=== PATIENT | male | born 1935 | race Caucasian/White ===

== ENCOUNTER 2017-08-30 16:36 | Inpatient (IN) ==
[2017-08-30] MEDS ORDERED: 0.9 % SODIUM CHLORIDE 1,000 ML IV ONE (16:49)
--- NOTE | 2017-08-30 16:59 | Emergency Department Note ---
Altered Mental Status HPI - General Chief Complaint: Altered Mental Status Stated Complaint: decreased LOC Time Seen by Provider: 08/30/17 16:47 Source: family, EMS Mode of arrival: EMS Limitations: altered mental status - History of Present Illness HPI Narrative: 82-year-old male who was seen 1 month ago on 08/02/17 for similar complaints which patient has been having altered level consciousness having hallucinations and agitation periods. Patient is being cared for at [facility] rehab which apparently patient had a CABG procedure and postoperatively developed a CVA. [facility] and then transferred to [facility] rehab the care center and that possibly may have an aspiration she still continued to be agitated. counter server arrived his blood sugar was 27 they did give him D50 CT performed 1 month ago revealed devious infarcts and possibly new pneumonia or acute infarct.. Had some mild cough the past week - Related Data Home Medications Medication Instructions Recorded Confirmed acetaminophen 500 mg tablet 650 mg G-TUBE Q4HP PRN tab 02/24/15 08/30/17 aspirin 81 mg chewable tablet 162 mg G-TUBE DAILY tab 02/24/15 08/30/17 Amantadine HCl [Amantadine] 100 mg G-TUBE BID 08/02/17 08/30/17 Amiodarone HCl [Cordarone] 200 mg G-TUBE QAC 08/02/17 08/30/17 Ascorbate Calcium [Vitamin C] 500 mg G-TUBE TUTHSA 08/02/17 08/30/17 Bisacodyl [Dulcolax] 10 mg [place] DAILYP PRN 08/02/17 08/30/17 Ferrous Sulfate [Iron] 325 mg G-TUBE TUTHSA 08/02/17 08/30/17 Insulin Aspart [Novolog] 0 unit SQ ACHS 08/02/17 08/30/17 Pantoprazole [Protonix] 40 mg G-TUBE DAILY 08/02/17 08/30/17 Terazosin [Hytrin] 1 mg G-TUBE HS 08/02/17 08/30/17 Vitamin D3 5,000 unit G-TUBE DAILY 08/02/17 08/30/17 acetaZOLAMIDE [Acetazolamide] 250 mg G-TUBE BID 08/02/17 08/30/17 traMADol HCL [Ultram] 50 mg G-TUBE Q6HP PRN 08/02/17 08/30/17 Clotrimazole/Betamethasone Dip 45 gm TOPICAL BID 08/30/17 08/30/17 [Clotrimazole-Betamethasone Crm] Glucagon HCl 1 mg IJ PRN PRN 08/30/17 08/30/17 Insulin Degludec [Tresiba 40 unit SQ DAILY 08/30/17 08/31/17 Flextouch U-200] Ipratropium/Albuterol [Duoneb] 3 ml NEB Q4HP PRN 08/30/17 08/30/17 LORazepam [Ativan] 0.25 mg PO Q6HP PRN 08/30/17 08/30/17 Magnesium Hydroxide [Milk of 400 mg PO PRN PRN 08/30/17 08/30/17 Magnesia] Allergies Allergy/AdvReac Type Severity Reaction Status Date / Time Iodinated Contrast- Oral and Allergy Intermediate Hives Verified 03/18/15 10:04 IV Dye [Iodinated Contrast Media - IV Dye] Penicillins Allergy Unknown Unknown Verified 08/30/17 21:51 Zvlxsve-Dcn-Lwa Reductase Allergy Unknown Verified 08/30/17 16:45 Inhibitor Sulfa (Sulfonamide Allergy Unknown Verified 08/30/17 16:45 Antibiotics) Review of Systems All systems ED: reviewed and negative except as stated. Constitutional: Denies: fever, chills Eyes: Denies: eye pain ENT ED: Denies: ear pain Cardiovascular: Denies: chest pain Respiratory: Denies: shortness of breath Gastrointestinal: Denies: abdominal pain Genitourinary: Denies: dysuria Musculoskeletal: Denies: back pain Integumentary: Denies: rash Neurological: Reports: as per HPI, confusion (he has been having confusion over the last month with agitation). Denies: numbness, paresthesias Psychiatric: Denies: anxiety Endocrine: Denies: fatigue Hematological/Lymphatic: Denies: easy bleeding Allergic/Immunologic: Denies: facial swelling Past Medical History - Past Medical History Medical history: Reports: arthritis (osteo-), cancer (prostate - external beam radiotherapy), coronary artery disease, DM, GERD, hyperlipidemia, hypertension, myocardial infarction (non-STEMI 2000, 2010 (?)), obesity, other (Carotid atherosclerosis. Tubular adenoma(s) colon. BPH. Chronic prostatitis. Pancreatitis (1969's-'s). Periph vasc disease. Mitral regurg. Metabolic syndrome. Gout. Chronic low back pain. Anemia. Reactive airway disease. C difficile colitis (presumptive based on PEG vanco).) Psychiatric history: Reports: anxiety, depression Surgical history ED: Reports: angioplasty/stent, appendectomy, carotid endarterectomy (right), coronary bypass (CABG), tonsillectomy, other (dilation or urethral stricture / cystoscopy. Debridement of leg wound.) - Social History smoking status: Former smoker (Quit at age 27) Alcohol use: Reports: Rarely (1 beer in 6 months.) Drug use: Reports: none Physical Exam Limitations: altered mental status Head: atraumatic, normocephalic Eye: Present: normal appearance ENT: normal exam, normal oropharynx, mucous membranes moist Neck: Present: normal inspection, full ROM, trachea midline Chest: Present: normal inspection, symmetric chest wall rise Respiratory: Present: normal lung sounds bilaterally, respiratory distress Cardiovascular: Present: regular rate, normal rhythm. Absent: bradycardia, tachycardia Abdominal: Present: soft, normal bowel sounds. Absent: distention, tenderness, guarding, rebound, rigidity Extremities: Present: normal inspection, full ROM Back: Present: normal inspection, full ROM Patient oriented to: Absent: person, place, time Speech: Absent: fluid speech Cranial nerves: EOM function (II, III, IV, ): Normal, facial sensation (V): Normal, facial palsy (VII): Normal, gag reflex (IX): Normal, spinal accessory function (XI): Normal, tongue deviation (XII): Normal Motor strength - LUE: 4/5 Motor strength - RUE: 4/5 Motor strength - LLE: 4/5 Motor strength - RLE: 4/5 Upper motor neuron exam: Babinski sign: Absent bilaterally Sensory exam upper extremity: Normal: light touch Sensory exam lower extremity: Normal: light touch DTR: 2+: patellar (L), patellar (R) Coma Scale Motor Response: Obeys Commands Coma Scale Verbal Response: Oriented Psychiatric: Present: normal affect Course Vital Signs Temperature 96.5 F L 08/30/17 16:40 Pulse Rate 85 08/30/17 16:40 Respiratory Rate 18 08/30/17 16:40 Blood Pressure 135/72 08/30/17 16:40 Pulse Oximetry (%) 94 08/30/17 16:40 Temperature 97.3 F 08/31/17 08:00 Pulse Rate 107 H 08/31/17 07:38 Respiratory Rate 20 08/31/17 08:00 Blood Pressure 120/72 08/31/17 08:00 Pulse Oximetry (%) 96 08/31/17 08:00 Altered Mental Status - Lab Data Result diagrams: 08/31/17 04:17 08/31/17 04:17 Lab Results 08/30/17 08/30/17 08/30/17 Range/Units 17:05 17:05 17:05 WBC 12.2 H (4.5-11.0) K/mcL RBC 3.83 L (4.50-5.90) M/mcL Hgb 11.5 L (13.5-16.5) g/dL Hct 34.4 L (41.0-55.0) % POC Hct 35.0 L (41.0-55.0) % MCV 89.7 (80.0-100.0) fL MCH 29.9 (26.0-34.0) pg MCHC 33.3 (31.0-36.0) g/dL RDW 16.5 H (11.5-14.5) % Plt Count 447 H (140-440) K/mcL MPV 7.8 (7.4-10.4) fL Total Counted 100 Seg Neutrophils % 86 H (38-78) % Band Neutrophils % 3 (0-10) % Lymphocytes % 6 L (15-49) % Monocytes % (Manual) 4 (1-12) % Eosinophils % (Manual) 1 (0-7) % Platelet Estimate Increased A (NORMAL) RBC Morphology Abnorm A (NORMAL) Polychromasia Few A (NONE SEEN) Anisocytosis 1+ A (NONE SEEN) VBG Lactic Acid 1.1 (0.5-2.2) mmol/L POC Sodium 145 (133-145) mmol/L Sodium 143 (133-145) mmol/L POC Potassium 3.5 (3.3-5.1) mmol/L Potassium 3.7 (3.3-5.1) mmol/L POC Chloride 113 H (96-108) mmol/L Chloride 108 (96-108) mmol/L Carbon Dioxide 18 L (22-30) mmol/L POC Total CO2 19 L (22-30) mmol/L Anion Gap 17.0 H (8-16) POC BUN 55 H (8-23) mg/dl BUN 63 H (8-23) mg/dl Creatinine 1.7 H (0.7-1.2) mg/dl POC Creatinine 1.6 H (0.7-1.2) mg/dl GFR Calculation 37 Glucose 94 (70-105) mg/dL POC Glucose 95 (70-105) mg/dL Calcium 10.0 (8.6-10.4) mg/dl POC WB Ioniz Calcium 1.33 H (1.16-1.32) mmol/L Total Bilirubin 0.5 (0.0-1.0) mg/dL AST 27 (0-37) U/l ALT 99 H (0-40) U/l Alkaline Phosphatase 176 H (39-117) U/L Total Protein 7.2 (5.9-8.4) gm/dL Albumin 3.1 L (3.2-5.2) gm/dL Globulin 4.1 H (2.2-3.7) gm/dL Albumin/Globulin Ratio 0.8 L (1.0-2.3) Urine Color Urine Appearance Urine pH (5.0-9.0) Ur Specific [place] (1.000-1.035) Urine Protein (NEG) mg/dL Urine Glucose (UA) (NEG) mg/dL Urine Ketones (NEG) mg/dL Urine Occult Blood (<0.03) mg/dL Urine Nitrate (NEG) Urine Bilirubin (NEG) mg/dL Urine Urobilinogen (NEG) mg/dL Ur Leukocyte Esterase (NEG) /uL Urine RBC (0-1) /hpf Urine WBC (0-4) /hpf Ur Squamous Epith Cells (0-4) /hpf Urine Bacteria (0) /hpf Urine Mucus (0) /hpf Ur Culture Indicated? 08/30/17 Range/Units 18:03 WBC (4.5-11.0) K/mcL RBC (4.50-5.90) M/mcL Hgb (13.5-16.5) g/dL Hct (41.0-55.0) % POC Hct (41.0-55.0) % MCV (80.0-100.0) fL MCH (26.0-34.0) pg MCHC (31.0-36.0) g/dL RDW (11.5-14.5) % Plt Count (140-440) K/mcL MPV (7.4-10.4) fL Total Counted Seg Neutrophils % (38-78) % Band Neutrophils % (0-10) % Lymphocytes % (15-49) % Monocytes % (Manual) (1-12) % Eosinophils % (Manual) (0-7) % Platelet Estimate (NORMAL) RBC Morphology (NORMAL) Polychromasia (NONE SEEN) Anisocytosis (NONE SEEN) VBG Lactic Acid (0.5-2.2) mmol/L POC Sodium (133-145) mmol/L Sodium (133-145) mmol/L POC Potassium (3.3-5.1) mmol/L Potassium (3.3-5.1) mmol/L POC Chloride (96-108) mmol/L Chloride (96-108) mmol/L Carbon Dioxide (22-30) mmol/L POC Total CO2 (22-30) mmol/L Anion Gap (8-16) POC BUN (8-23) mg/dl BUN (8-23) mg/dl Creatinine (0.7-1.2) mg/dl POC Creatinine (0.7-1.2) mg/dl GFR Calculation Glucose (70-105) mg/dL POC Glucose (70-105) mg/dL Calcium (8.6-10.4) mg/dl POC WB Ioniz Calcium (1.16-1.32) mmol/L Total Bilirubin (0.0-1.0) mg/dL AST (0-37) U/l ALT (0-40) U/l Alkaline Phosphatase (39-117) U/L Total Protein (5.9-8.4) gm/dL Albumin (3.2-5.2) gm/dL Globulin (2.2-3.7) gm/dL Albumin/Globulin Ratio (1.0-2.3) Urine Color Yellow Urine Appearance Clear Urine pH 5.0 (5.0-9.0) Ur Specific [place] 1.019 (1.000-1.035) Urine Protein Neg (NEG) mg/dL Urine Glucose (UA) Negative (NEG) mg/dL Urine Ketones Neg (NEG) mg/dL Urine Occult Blood Neg (<0.03) mg/dL Urine Nitrate Neg (NEG) Urine Bilirubin Neg (NEG) mg/dL Urine Urobilinogen Neg (NEG) mg/dL Ur Leukocyte Esterase Neg (NEG) /uL Urine RBC 0 (0-1) /hpf Urine WBC 1 (0-4) /hpf Ur Squamous Epith Cells < 1 (0-4) /hpf Urine Bacteria 0 (0) /hpf Urine Mucus Few (0) /hpf Ur Culture Indicated? No Disposition Pt seen by [employer] LEADER/PA only: No Clinical Impression: Decreased LOC Disposition: Xfer As Inpt ([facility]) Condition: Undetermined
--- NOTE | 2017-08-30 17:33 | XRay Report ---
CLINICAL INFORMATION: Chest pain COMPARISON: 08/02/2017 FINDINGS: Moderate cardiomegaly shows slight increased. Mediastinum is unremarkable. Pulmonary vessels appear grossly normal but are poorly visualized. Large infiltrate throughout the right lung has developed. The left lung is clear IMPRESSION: Large diffuse right lung infiltrate. Suspect pneumonia. Interpreted and Authenticated by: Surendra Mcginnis 08/30/17
[2017-08-30] MEDS ORDERED: cefTRIAXone 1 GM VIAL IV SCH (17:45)
[2017-08-30] MEDS ORDERED: 0.9 % SODIUM CHLORIDE 1,000 ML IV SCH (17:45)
[2017-08-30 17:49] LABS: Mean Cell Volume 89.7 fL (80.0-100.0); Mean Corpuscular HGB Conc 33.3 g/dL (31.0-36.0); Mean Corpuscular Hemoglobin 29.9 pg (26.0-34.0); Platelet Count 447 K/mcL (140-440); RBC 3.83 M/mcL (4.50-5.90); Red Cell Distribution Width 16.5 % (11.5-14.5)
[2017-08-30 18:13] LABS: ALT/SGPT 99 U/l (0-40); Albumin 3.1 gm/dL (3.2-5.2); Albumin/Globulin Ratio 0.8 (1.0-2.3); Alkaline Phosphatase 176 U/L (39-117); Blood Urea Nitrogen 63 mg/dl (8-23)
[2017-08-30] MEDS ORDERED: DEXTROSE 5%-1/2NS 1,000 ML IV SCH (18:15)
[2017-08-30 18:21] LABS: Anisocytosis 1+ (NONE SEEN); Band Neutrophils % 3 % (0-10); Eosinophils % (Manual) 1 % (0-7); Lymphocytes % 6 % (15-49); Monocytes % (Manual) 4 % (1-12); Platelet Estimate INCREASED (NORMAL); RBC Morphology ABNORM (NORMAL); Segmented Neutrophils % 86 % (38-78)
--- NOTE | 2017-08-30 18:21 | Cat Scan Report ---
CLINICAL INFORMATION: Confusion history of CVA COMPARISON: Head CT one month prior - 08/02/2017 TECHNIQUE: 2.5 mm helical slices were obtained in the skull base to vertex. Following reconstruction, axial reformatted images were reviewed at bone and parenchymal windows. The exam was performed using radiation dose optimization techniques including, but not limited to, automated exposure control, adjustment of the mA and/or kV according to patient size and use of iterative reconstruction technique. FINDINGS: The ventricles, sulci, fissures, and cisterns are symmetrically enlarged compatible with mild age-related atrophy - no extra-axial fluid collections or masses are appreciated. Moderate size wedge-shaped chronic infarct in the inferior left occipital lobe and moderate wedge-shaped chronic infarct in the superior left occipital lobe shows a decrease in attenuation with stroke evolution. Patchy chronic ischemic changes in the cerebral white matter - expected for age. There is no intracerebral hemorrhage, mass effect or edema. There is an air-fluid level in the left sphenoid sinus compatible with severe sphenoid sinusitis. No osseous abnormality.\ IMPRESSION: Moderate chronic cortical-based infarct in the inferior left occipital lobe and a second second moderate chronic cortical-based infarct in the superior left occipital lobe - near vertex Mild atrophy and chronic ischemic changes in the cerebral white matter. No hemorrhage or other acute intracerebral process Severe left sphenoid sinusitis - stable Interpreted and Authenticated by: Surendra Mcginnis 08/30/17
[2017-08-30 18:34] LABS: Appearance,Urine CLEAR; Bacteria,Urine 0 /hpf (0); Bilirubin,Urine NEG (NEG); Color,Urine YELLOW; Glucose,Urine (UA) NEGATIVE (NEG); Leukocyte Esterase,Urine NEG /uL (NEG); Mucus,Urine FEW /hpf (0); Protein,Urine NEG (NEG); Specific Gravity,Urine 1.019 (1.000-1.035); Urine Blood NEG mg/dL (<0.03); Urine RBC 0 /hpf (0-1); Urine Squamous Epithelial Cell < 1 /hpf (0-4); Urine WBC 1 /hpf (0-4); Urobilinogen,Urine NEG (NEG)
[2017-08-30] MEDS ORDERED: IPRATROPIUM/ALBUTEROL 3 ML AMPUL.NEB NEB ONE (19:21)
[2017-08-30] MEDS ORDERED: BISACODYL 10 MG SUPP.RECT PR PRN ×2 (20:59→21:34)
[2017-08-30] MEDS ORDERED: cefTRIAXone 2 GM in DEXTROSE 5% IN WATER 50 ML IV SCH (21:34)
[2017-08-30] MEDS ORDERED: ACETAMINOPHEN 325 MG TABLET PO PRN (21:34)
[2017-08-30] MEDS ORDERED: LORazepam 0.5 MG TABLET PO PRN (21:52)
[2017-08-30] MEDS: HEPARIN 5,000 UNIT/ML VIAL SQ SCH (22:23)
[2017-08-30] MEDS: metroNIDAZOLE 500 MG/100 ML BAG IV SCH (22:24)
--- NOTE | 2017-08-30 22:47 | Internal Med History&Physical ---
Medical - H&P: HPI Patient information: Note initiated : 08/30/17 at 10:31 pm Service Date, if different from initiated Date: [] Patient: Bill Snider a 82 y/o M admitted on 08/30/17 for decreased LOC. Chief Complaint: cough and sob History of present illness: Mr. Snider is a 82 year old M, resident of [facility] facility, who was referred to ED for AMS with episodes of agitation and hallucinations. is at beside and reported that patient has been coughing for one month. A CXR at that time was 'normal'. The cough is usually non-productive and doesn't seem to be related to oral intake of food or liquids. Patient is S/P CABG x 4 on 05/26/2017. He did initially well, but developed respiratory failure after a few days. stated that patient was about one month on ventilator support. He was noted to have right sided weakness and diagnosed with a CVA, which most likely occurred in immediate post-operative period. Patient was for one month in an acute rehab center before transferred to [facility]. Patient has a G-tube, but states, that he has been eating pureed food and non-thickened liquids without problems. The tube hasn't been used since patient has been in [facility]. Patient is still considerably weak on the right side. He stands three times daily with PT, but hasn't been able to ambulate. When EMS arrived to pick-up patient, BS was 27 and patient was given one amp of D50. - Constitutional Constitutional: Present: fatigue, malaise, weakness - Cardiovascular Cardiovascular: Present: dyspnea, edema, leg edema - Respiratory Respiratory: Present: cough, dyspnea, chest congestion, excessive phlegm production - Gastrointestinal Gastrointestinal: Absent: abdominal pain, diarrhea, dysphagia - Genitourinary Genitourinary: Absent: dysuria - Musculoskeletal Musculoskeletal: Present: muscle weakness - Psychiatric Psychiatric: Present: depression Medical - H&P: [facility] Medical history: Medical history: Reports: arthritis (osteo-), cancer (prostate - external beam radiotherapy), coronary artery disease, DM, GERD, hyperlipidemia, hypertension, myocardial infarction (non-STEMI 2000, 2010 (?)), obesity, other (Carotid atherosclerosis. Tubular adenoma(s) colon. BPH. Chronic prostatitis. Pancreatitis (1969's-'s). Periph vasc disease. Mitral regurg. Metabolic syndrome. Gout. Chronic low back pain. Anemia. Reactive airway disease. C difficile colitis Surgical history: Surgical history ED: Reports: angioplasty/stent, appendectomy, carotid endarterectomy (right), coronary bypass (CABG), tonsillectomy, other (dilation or urethral stricture / cystoscopy. Debridement of leg wound.)S/P PEG placement Smoking status: Former smoker (quit smoking at age 27) Drug use: none Alcohol use: none Medical - H&P: Meds Home Medications Medication Instructions Recorded Confirmed Type acetaminophen 500 mg tablet 650 mg G-TUBE Q4HP PRN tab 02/24/15 08/30/17 History aspirin 81 mg chewable tablet 162 mg G-TUBE DAILY tab 02/24/15 08/30/17 History Amantadine HCl [Amantadine] 100 mg G-TUBE BID 08/02/17 08/30/17 History Amiodarone HCl [Cordarone] 200 mg G-TUBE QAC 08/02/17 08/30/17 History Ascorbate Calcium [Vitamin C] 500 mg G-TUBE TUTHSA 08/02/17 08/30/17 History Bisacodyl [Dulcolax] 10 mg [place] DAILYP PRN 08/02/17 08/30/17 History Ferrous Sulfate [Iron] 325 mg G-TUBE TUTHSA 08/02/17 08/30/17 History Insulin Aspart [Novolog] 0 unit SQ ACHS 08/02/17 08/30/17 History Pantoprazole [Protonix] 40 mg G-TUBE DAILY 08/02/17 08/30/17 History Terazosin [Hytrin] 1 mg G-TUBE HS 08/02/17 08/30/17 History Vitamin D3 5,000 unit G-TUBE DAILY 08/02/17 08/30/17 History acetaZOLAMIDE [Acetazolamide] 250 mg G-TUBE BID 08/02/17 08/30/17 History traMADol HCL [Ultram] 50 mg G-TUBE Q6HP PRN 08/02/17 08/30/17 History Clotrimazole/Betamethasone Dip 45 gm TOPICAL BID 08/30/17 08/30/17 History [Clotrimazole-Betamethasone Crm] Glucagon HCl 1 mg IJ PRN PRN 08/30/17 08/30/17 History Insulin Degludec [Tresiba 200 unit SQ DAILY 08/30/17 08/30/17 History Flextouch U-200] Ipratropium/Albuterol [Duoneb] 3 ml NEB Q4HP PRN 08/30/17 08/30/17 History LORazepam [Ativan] 0.25 mg PO Q6HP PRN 08/30/17 08/30/17 History Magnesium Hydroxide [Milk of 400 mg PO PRN PRN 08/30/17 08/30/17 History Magnesia] Allergies Allergy/AdvReac Type Severity Reaction Status Date / Time Iodinated Contrast- Oral and Allergy Intermediate Hives Verified 03/18/15 10:04 IV Dye [Iodinated Contrast Media - IV Dye] Penicillins Allergy Unknown Unknown Verified 08/30/17 21:51 [id number]-[id number]-Vzq Reductase Allergy Unknown Verified 08/30/17 16:45 Inhibitor Sulfa (Sulfonamide Allergy Unknown Verified 08/30/17 16:45 Antibiotics) Medical - H&P: Exam - Constitutional Vitals: Temp Pulse Resp BP Pulse Ox 96.9 F L 78 28 H 133/73 93 08/30/17 21:00 08/30/17 21:00 08/30/17 21:00 08/30/17 21:00 08/30/17 21:00 General appearance: average body habitus - Head Head exam: Present: normal inspection - Eye Eye exam: Present: EOMI, PERRL - Neck Neck exam: Present: normal inspection - Respiratory Respiratory exam: Present: rhonchi, wheezes. Absent: accessory muscle use - Cardiovascular Cardiovascular exam: Present: normal rate and rhythm - GI/Abdominal GI/Abdominal exam: Present: normal bowel sounds, soft Additional comments: PEG-tube in place. Site is wnl - Extremities Exam Extremities exam: Present: pedal edema - Neurological Exam Additional comments: awake. Oriented x 1 - Expanded Neurological Exam Neuro motor strength exam: LUE: 5, RUE: 4, LLE: 5, RLE: 3 - Psychiatric Psychiatric exam: Present: depressed - Skin Skin exam: Present: intact Medical - H&P: Reslt - Labs CBC & Chem 7: 08/30/17 17:05 08/30/17 17:05 Labs: Short CBC 08/30/17 Range/Units 17:05 WBC 12.2 H (4.5-11.0) K/mcL Hgb 11.5 L (13.5-16.5) g/dL Hct 34.4 L (41.0-55.0) % Plt Count 447 H (140-440) K/mcL BMP 08/30/17 17:05 Sodium 143 Potassium 3.7 Chloride 108 Carbon Dioxide 18 L BUN 63 H Creatinine 1.7 H Glucose 94 Calcium 10.0 Liver Function 08/30/17 Range/Units 17:05 Total Bilirubin 0.5 (0.0-1.0) mg/dL AST 27 (0-37) U/l ALT 99 H (0-40) U/l Alkaline Phosphatase 176 H (39-117) U/L Albumin 3.1 L (3.2-5.2) gm/dL Urine 08/30/17 Range/Units 18:03 Urine Color Yellow Urine Appearance Clear Urine pH 5.0 (5.0-9.0) Ur Specific [place] 1.019 (1.000-1.035) Urine Protein Neg (NEG) mg/dL Urine Glucose (UA) Negative (NEG) mg/dL - Impressions CT-head: IMPRESSION: Moderate chronic cortical-based infarct in the inferior left occipital lobe and a second second moderate chronic cortical-based infarct in the superior left occipital lobe - near vertex Mild atrophy and chronic ischemic changes in the cerebral white matter. No hemorrhage or other acute intracerebral process Severe left sphenoid sinusitis - stable CXR: IMPRESSION: Large diffuse right lung infiltrate. Suspect pneumonia. Medical - H&P: A/P - Narrative A/P Narrative: 82-year-old male presented 08/30 with following problems: + AMS Underlying dementia Metabolic encephalopathy due to pneumonia, hypoglycemia + Large R-sided pneumonia Aspiration vs HCAP Empirically started on Ceftriaxone and Metronidazole MRSA screen and Blood cultures obtained + Recent CVA with residual R-sided weakness. Possibly dysphagia. Will obtain swallowing eval + S/P CABG in May 2017 + Diabetes Mellitus Was hypoglycemic earlier today. Will monitor closely Insulin SS + Dementia DVT prophylaxis: heparin Code status: DNR as discussed with patient and at bedside Time spent > 50 min on [id number] encounter, counseling, coordination of care.
[2017-08-30] MEDS: IPRATROPIUM/ALBUTEROL 3 ML AMPUL.NEB NEB SCH (23:16)
[2017-08-30] MEDS ORDERED: DEXTROSE 31 GM ORAL.SUSP PO PRN (23:29)
[2017-08-30] MEDS ORDERED: LORazepam 2 MG/ML VIAL IV ONE (23:38)
[2017-08-30] MEDS ORDERED: LORazepam 2 MG/ML VIAL ONE (23:41)
[2017-08-30] MEDS: 0.9 % SODIUM CHLORIDE 10 ML SYRINGE IV SCH (23:51)
[2017-08-31] MEDS ORDERED: LORazepam 2 MG/ML VIAL IV PRN (00:20)
[2017-08-31] MEDS ORDERED: LORazepam 2 MG/ML VIAL ONE (04:16)
[2017-08-31] MEDS: LORazepam 2 MG/ML VIAL IV PRN ×5 (04:19→21:08)
[2017-08-31] MEDS: metroNIDAZOLE 500 MG/100 ML BAG IV SCH ×3 (05:30→21:24)
[2017-08-31] MEDS: 0.9 % SODIUM CHLORIDE 10 ML SYRINGE IV SCH ×3 (05:31→21:20)
[2017-08-31 06:04] LABS: Basophils # (Auto) 0 K/mcL (0.0-0.3); Basophils % (Auto) 0 % (0.0-2.0); Eosinophils # (Auto) 0.5 K/mcL (0.0-0.7); Eosinophils % (Auto) 3.4 % (0.0-7.0); Granulocytes % (Auto) 80.9 % (38.0-78.0); Lymphocytes # (Auto) 1.7 K/mcL (1.5-4.8); Lymphocytes % (Auto) 10.6 % (15.5-49.0); Mean Cell Volume 91.7 fL (80.0-100.0); Mean Corpuscular HGB Conc 32.3 g/dL (31.0-36.0); Mean Corpuscular Hemoglobin 29.6 pg (26.0-34.0); Monocytes # (Auto) 0.8 K/mcL (0.1-0.9); Monocytes % (Auto) 5.1 % (1.0-12.0); Platelet Count 466 K/mcL (140-440); Red Cell Distribution Width 16.6 % (11.5-14.5)
[2017-08-31 06:18] LABS: Hemoglobin A1C 6.9 % HGB (4.0-6.0)
[2017-08-31 06:43] LABS: Blood Urea Nitrogen 62 mg/dl (8-23)
[2017-08-31] MEDS: IPRATROPIUM/ALBUTEROL 3 ML AMPUL.NEB NEB SCH ×3 (07:27→19:25)
[2017-08-31] MEDS ORDERED: AMIODARONE HCL 200 MG TABLET PO SCH ×2 (08:00)
[2017-08-31] MEDS: INSULIN LISPRO 1 UNIT/0.01 ML UNIT SQ SCH ×4 (08:05→21:08)
[2017-08-31] MEDS ORDERED: CITALOPRAM 20 MG TABLET PO SCH (09:00)
[2017-08-31] MEDS ORDERED: LEVOFLOXACIN 750 MG/150 ML BAG IV SCH (09:00)
[2017-08-31] MEDS ORDERED: cefTRIAXone 1 GM VIAL IV SCH (09:00)
[2017-08-31] MEDS ORDERED: AMANTADINE HCL 100 MG CAPSULE PO SCH (09:00)
[2017-08-31] MEDS: AMANTADINE HCL 100 MG CAPSULE PO SCH ×2 (09:29→21:19)
[2017-08-31] MEDS: HEPARIN 5,000 UNIT/ML VIAL SQ SCH ×2 (09:43→21:18)
[2017-08-31] MEDS: DEXTROSE 50% 50 ML VIAL IV PRN ×2 (11:50→22:21)
--- NOTE | 2017-08-31 13:55 | Internal Med Progress Note ---
Medical - PN: Subj Patient information: Note initiated : 08/31/17 at 1:52 pm Service Date, if different from initiated Date: [] Patient: Bill Snider 82 y/o M admitted on 08/30/17 for Decreased LOC/ Pneumonia. Chief Complaint: AMS with agitation, SOB and cough. Interval history: 08/30: Admitted with large RLL pneumonia. DD aspiration, HCAP Was agitated throughout night. In mild respiratory distress with wheezing and rhonchi. Has been receiving Ativan and Morphine intermittently with slight improvement in agitation. 08/31: SBP 94 Requiring 4 L O2 via NC Continues to be delirious and agitated. WBC up to 15.9. MRSA: neg On: Ceftriaxone, Azithromycin, Levofloxacin, Metronidazole. Levofloxacin added Review of [place] medical information (h/P and D/c summary) - Constitutional Vitals: Vital Signs Temp Pulse Resp BP Pulse Ox 97.9 F 107 H 22 94/54 95 08/31/17 12:00 08/31/17 07:38 08/31/17 12:00 08/31/17 12:00 08/31/17 12:00 Period Temp Pulse Resp BP Sys/Jane Pulse Ox Last 24 Hr 95.6 F-97.9 F 78-107 17-28 93-140/54-84 87-100 Intake and Output 08/30/17 08/31/17 08/31/17 21:59 05:59 13:59 Intake Total 2150 / 2150 100 / 100 370 / 370 Output Total 575 / 575 150 / 150 Balance 2150 / 2150 -475 / -475 220 / 220 Weight 192 lb Intake & Output: Intake & Output 08/30/17 08/31/17 08/31/17 21:59 05:59 13:59 Intake Total 2150 / 2150 100 / 100 370 / 370 Output Total 575 / 575 150 / 150 Balance 2150 / 2150 -475 / -475 220 / 220 Weight 192 lb Intake: IV 2150 / 2150 100 / 100 250 / 250 Sodium Chloride 0.9% 1,000 ml @ 1446 / 1446 250 mls/hr IV .Q4H MED Rx#: [id number] Dextrose 5%-1/2Ns IV Solution 1 704 / 704 ,000 ml @ 250 mls/hr IV .Q4H MED Rx#:[id number] Oral 0 / 0 120 / 120 Output: Urine Catheter Amount 575 / 575 150 / 150 Other: Meal Breakfast Percent of Meal Consumed 30% Feeding Ability Total Assistance General appearance: average body habitus, mild distress - Respiratory Respiratory exam: Present: rhonchi, wheezes - Cardiovascular Cardiovascular exam: Present: normal rate and rhythm - GI/Abdominal GI/Abdominal exam: Present: normal bowel sounds, soft Additional comments: PEG-tube in place - Extremities Exam Extremities exam: Present: pedal edema Medical - PN: Obj Da - Labs CBC & Chem 7: 08/31/17 04:17 08/31/17 04:17 Labs: Abnormal Lab Results 08/31/17 08/31/17 08/31/17 04:17 04:17 04:17 WBC 15.9 H RBC 3.80 L Hgb 11.3 L Hct 34.9 L POC Hct RDW 16.6 H Plt Count 466 H Gran % 80.9 H Lymph % (Auto) 10.6 L Gran # 12.9 H Seg Neutrophils % Lymphocytes % Platelet Estimate RBC Morphology Polychromasia Anisocytosis POC Chloride Chloride 109 H Carbon Dioxide 17 L POC Total CO2 Anion Gap POC BUN BUN 62 H Creatinine 1.6 H POC Creatinine Hemoglobin A1c 6.9 H POC WB Ioniz Calcium ALT Alkaline Phosphatase Albumin Globulin Albumin/Globulin Ratio 08/30/17 08/30/17 17:05 17:05 WBC 12.2 H RBC 3.83 L Hgb 11.5 L Hct 34.4 L POC Hct 35.0 L RDW 16.5 H Plt Count 447 H Gran % Lymph % (Auto) Gran # Seg Neutrophils % 86 H Lymphocytes % 6 L Platelet Estimate Increased A RBC Morphology Abnorm A Polychromasia Few A Anisocytosis 1+ A POC Chloride 113 H Chloride Carbon Dioxide 18 L POC Total CO2 19 L Anion Gap 17.0 H POC BUN 55 H BUN 63 H Creatinine 1.7 H POC Creatinine 1.6 H Hemoglobin A1c POC WB Ioniz Calcium 1.33 H ALT 99 H Alkaline Phosphatase 176 H Albumin 3.1 L Globulin 4.1 H Albumin/Globulin Ratio 0.8 L Meds: Medications Acetaminophen (Tylenol) 650 mg PO Q6HP PRN PRN Reason: PAIN/FEVER > 101 Albuterol/Ipratropium (Duoneb) 3 ml NEB Q6HRT [facility] Last Admin: 08/31/17 07:27 Dose: 3 ml Amantadine HCl (Amantadine) 100 mg PO BID [facility] Last Admin: 08/31/17 09:29 Dose: 100 mg Amiodarone HCl (Cordarone) 200 mg PO [facility] Last Admin: 08/31/17 08:40 Dose: 200 mg Bisacodyl (Dulcolax) 10 mg [place] DAILYP PRN PRN Reason: Constipation Ceftriaxone Sodium (Rocephin) 1 gm IV Q24H [facility] Last Admin: 08/31/17 09:44 Dose: 1 gm Citalopram Hydrobromide (Celexa) 10 mg PO DAILY [facility] Last Admin: 08/31/17 08:40 Dose: 10 mg Dextrose (Dextrose 50%) 0 ml IV UD PRN PRN Reason: Hypoglycemia Diagnostic Test (Pha) (Accu-Chek) 1 each FS ACHS [facility] Last Admin: 08/31/17 13:35 Dose: 1 each Glucose (Insta-Glucose) 15 gm PO PRN PRN PRN Reason: Hypoglycemia Heparin Sodium (Porcine) (Heparin) 5,000 unit SQ Q12 [facility] Last Admin: 08/31/17 09:43 Dose: 5,000 unit Metronidazole (Flagyl) 500 mg in 100 mls @ 100 mls/hr IV Q8H [facility] Last Admin: 08/31/17 13:52 Dose: 100 mls/hr Levofloxacin (Levaquin) 750 mg in 150 mls @ 100 mls/hr IV Q48H [facility] Last Infusion: 08/31/17 11:33 Dose: Infused Insulin Human Lispro (Humalog) 0 unit SQ [facility] PRN Reason: Protocol Last Admin: 08/31/17 11:50 Dose: Not Given Lorazepam (Ativan) 0.5 mg IV Q4HP PRN PRN Reason: ANXIETY/SEDATION Last Admin: 08/31/17 13:15 Dose: 0.5 mg Morphine Sulfate (Morphine) 1 mg IV Q4HP PRN PRN Reason: Dyspnea Last Admin: 08/31/17 11:51 Dose: 1 mg Sodium Chloride (Saline Flush) 10 ml IV Q8 [facility] Last Admin: 08/31/17 13:52 Dose: 10 ml Medical - PN: A/P - Time Spent With Patient Total time spent is greater than 50% in coordination of care (as documented) at patient's floor/unit and/or counseling patient: 15 - 24 minutes - Narrative A/P Narrative: 82-year-old male presented 08/30 with following problems: + AMS Underlying dementia Delirium Sundowning. Metabolic encephalopathy due to pneumonia, hypoglycemia Review of d/c summary [place] 06/19/17: was on Olanzaping 10 mg every 6 hours for agitation + Large R-sided pneumonia Aspiration vs HCAP Empirically started on Ceftriaxone and Metronidazole. Levofloxacin added. 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 Will monitor closely Insulin SS + CKD stage III Cr around 1.4 in June 2017 + Dementia DVT prophylaxis: heparin Code status: DNR Medical - PN: Qual - VTE Deep Vein Thrombosis/Pulmonary Embolism Present on Admission: No
[2017-08-31] MEDS ORDERED: HYDROmorphone 2 MG/ML VIAL ONE (23:37)
[2017-08-31] MEDS ORDERED: HYDROmorphone 2 MG/ML VIAL IV PRN (23:40)
--- NOTE | 2017-08-31 23:57 | Internal Med Progress Note ---
Medical - PN: Subj Patient information: Note initiated : 08/31/17 at 11:48 pm Service Date, if different from initiated Date: [] Patient: Bill Snider 82 y/o M admitted on 08/30/17 for Decreased LOC/ Pneumonia. Chief Complaint: [] Interval history: 08/30: Admitted with large RLL pneumonia. DD aspiration, HCAP Was agitated throughout night. In mild respiratory distress with wheezing and rhonchi. Has been receiving Ativan and Morphine intermittently with slight improvement in agitation. 08/31: SBP 94 Requiring 4 L O2 via NC Continues to be delirious and agitated. WBC up to 15.9. MRSA: neg On: Ceftriaxone, Azithromycin, Levofloxacin, Metronidazole. Levofloxacin added Review of [place] medical information (h/P and D/c summary) 23:30 Patient is tachypneic and agitated. Unable to clear airways. Lungs: bilateral rhonchi CXR: extensive consolidation RLL and diffuse infiltrates makayla Called to update patient's condition: extensive pneumonia. Patient showing signs of fatigue, SOB and discomfort. Will provide more comfort with narcotics. Suction as needed. BiPap support if tolerated. Condition is serious, prognosis guarded. Left the decision to come in and call family up to . - Constitutional Vitals: Vital Signs Temp Pulse Resp BP Pulse Ox 98.0 F 108 H 28 H 126/68 90 08/31/17 20:35 08/31/17 20:35 08/31/17 20:35 08/31/17 20:35 08/31/17 20:35 Period Temp Pulse Resp BP Sys/Jane Pulse Ox Last 24 Hr 97.1 F-98.0 F 96-116 20-28 89-129/50-72 90-97 Intake and Output 08/31/17 08/31/17 09/01/17 13:59 21:59 05:59 Intake Total 370 / 370 140 / 140 Output Total 150 / 150 Balance 220 / 220 139 / 139 Weight 185 lb 8 oz Patient Weight 09/01/17 05:59 Weight 185 lb 8 oz Intake & Output: Intake & Output 08/31/17 08/31/17 09/01/17 13:59 21:59 05:59 Intake Total 370 / 370 140 / 140 Output Total 150 / 150 / Balance 220 / 220 139 / 139 Weight 185 lb 8 oz Intake: IV 250 / 250 100 / 100 Oral 120 / 120 40 / 40 Output: Urine Catheter Amount 150 / 150 # of times incontinent of urine Other: Meal Breakfast Percent of Meal Consumed 30% Feeding Ability Total Assistance Medical - PN: Obj Da - Labs CBC & Chem 7: 08/31/17 04:17 08/31/17 04:17 Labs: Abnormal Lab Results 08/31/17 08/31/17 08/31/17 04:17 04:17 04:17 WBC 15.9 H RBC 3.80 L Hgb 11.3 L Hct 34.9 L POC Hct RDW 16.6 H Plt Count 466 H Gran % 80.9 H Lymph % (Auto) 10.6 L Gran # 12.9 H Seg Neutrophils % Lymphocytes % Platelet Estimate RBC Morphology Polychromasia Anisocytosis POC Chloride Chloride 109 H Carbon Dioxide 17 L POC Total CO2 Anion Gap POC BUN BUN 62 H Creatinine 1.6 H POC Creatinine Hemoglobin A1c 6.9 H POC WB Ioniz Calcium ALT Alkaline Phosphatase Albumin Globulin Albumin/Globulin Ratio 08/30/17 08/30/17 17:05 17:05 WBC 12.2 H RBC 3.83 L Hgb 11.5 L Hct 34.4 L POC Hct 35.0 L RDW 16.5 H Plt Count 447 H Gran % Lymph % (Auto) Gran # Seg Neutrophils % 86 H Lymphocytes % 6 L Platelet Estimate Increased A RBC Morphology Abnorm A Polychromasia Few A Anisocytosis 1+ A POC Chloride 113 H Chloride Carbon Dioxide 18 L POC Total CO2 19 L Anion Gap 17.0 H POC BUN 55 H BUN 63 H Creatinine 1.7 H POC Creatinine 1.6 H Hemoglobin A1c POC WB Ioniz Calcium 1.33 H ALT 99 H Alkaline Phosphatase 176 H Albumin 3.1 L Globulin 4.1 H Albumin/Globulin Ratio 0.8 L Meds: Medications Acetaminophen (Tylenol) 650 mg PO Q6HP PRN PRN Reason: PAIN/FEVER > 101 Albuterol/Ipratropium (Duoneb) 3 ml NEB Q4HRT [facility] Amantadine HCl (Amantadine) 100 mg PO BID [facility] Last Admin: 08/31/17 21:19 Dose: Not Given [facility]) [facility] Last Admin: 08/31/17 08:40 Dose: 200 mg Bisacodyl (Dulcolax) 10 mg [place] DAILYP PRN PRN Reason: Constipation Ceftriaxone Sodium (Rocephin) 1 gm IV Q24H [facility] Last Admin: 08/31/17 09:44 Dose: 1 gm Citalopram Hydrobromide (Celexa) 10 mg PO DAILY [facility] Last Admin: 08/31/17 08:40 Dose: 10 mg Dextrose (Dextrose 50%) 0 ml IV UD PRN PRN Reason: Hypoglycemia Last Admin: 08/31/17 22:21 Dose: 25 ml Diagnostic Test (Pha) (Accu-Chek) 1 each FS ACHS [facility] Last Admin: 08/31/17 22:53 Dose: 1 each Glucose (Insta-Glucose) 15 gm PO PRN PRN PRN Reason: Hypoglycemia Heparin Sodium (Porcine) (Heparin) 5,000 unit SQ Q12 [facility] Last Admin: 08/31/17 21:18 Dose: 5,000 unit Hydromorphone HCl (Dilaudid) 0.5 - 1 mg IV Q2HP PRN PRN Reason: Dyspnea Metronidazole (Flagyl) 500 mg in 100 mls @ 100 mls/hr IV Q8H [facility] Last Admin: 08/31/17 21:24 Dose: 100 mls/hr Levofloxacin (Levaquin) 750 mg in 150 mls @ 100 mls/hr IV Q48H [facility] Last Infusion: 08/31/17 11:33 Dose: Infused Insulin Human Lispro (Humalog) 0 unit SQ ACHS [facility] PRN Reason: Protocol Last Admin: 08/31/17 21:08 Dose: Not Given Lorazepam (Ativan) 0.5 mg IV Q4HP PRN PRN Reason: ANXIETY/SEDATION Last Admin: 08/31/17 21:08 Dose: 0.5 mg Morphine Sulfate (Morphine) 1 mg IV Q4HP PRN PRN Reason: Dyspnea Last Admin: 08/31/17 22:04 Dose: 1 mg Sodium Chloride (Saline Flush) 10 ml IV Q8 [facility] Last Admin: 08/31/17 21:20 Dose: 10 ml Medical - PN: A/P - Time Spent With Patient Total time spent is greater than 50% in coordination of care (as documented) at patient's floor/unit and/or counseling patient: 25 - 35 minutes Medical - PN: Qual - VTE Deep Vein Thrombosis/Pulmonary Embolism Present on Admission: No
[2017-09-01] MEDS ORDERED: ACETAMINOPHEN 325 MG TABLET PO PRN (00:51)
[2017-09-01] MEDS ORDERED: DEXTROSE 31 GM ORAL.SUSP PO PRN (00:51)
[2017-09-01] MEDS ORDERED: BISACODYL 10 MG SUPP.RECT PR PRN (00:51)
[2017-09-01] MEDS: VANCOMYCIN 1,000 MG in 0.9 % SODIUM CHLORIDE 250 ML IV SCH ×2 (01:50→02:05)
[2017-09-01] MEDS ORDERED: IPRATROPIUM/ALBUTEROL 3 ML AMPUL.NEB NEB ONE (02:52)
[2017-09-01] MEDS ORDERED: IPRATROPIUM/ALBUTEROL 3 ML AMPUL.NEB NEB SCH (03:00)
[2017-09-01] MEDS: IPRATROPIUM/ALBUTEROL 3 ML AMPUL.NEB NEB SCH ×6 (03:05→23:30)
[2017-09-01] MEDS ORDERED: DEXTROSE 50% 50 ML VIAL IV ONE (04:25)
[2017-09-01] MEDS: DEXTROSE 50% 50 ML VIAL IV PRN ×2 (04:31→18:18)
[2017-09-01 05:15] LABS: Basophils # (Auto) 0 K/mcL (0.0-0.3); Basophils % (Auto) 0 % (0.0-2.0); Eosinophils # (Auto) 0.7 K/mcL (0.0-0.7); Eosinophils % (Auto) 4.3 % (0.0-7.0); Granulocytes % (Auto) 80.4 % (38.0-78.0); Lymphocytes # (Auto) 1.9 K/mcL (1.5-4.8); Lymphocytes % (Auto) 11.2 % (15.5-49.0); Mean Cell Volume 92.2 fL (80.0-100.0); Mean Corpuscular Hemoglobin 29.5 pg (26.0-34.0); Monocytes # (Auto) 0.7 K/mcL (0.1-0.9); Monocytes % (Auto) 4.1 % (1.0-12.0); Platelet Count 438 K/mcL (140-440); RBC 3.65 M/mcL (4.50-5.90); Red Cell Distribution Width 17.1 % (11.5-14.5)
[2017-09-01 05:42] LABS: Albumin 2.8 gm/dL (3.2-5.2); Blood Urea Nitrogen 69 mg/dl (8-23)
[2017-09-01] MEDS: metroNIDAZOLE 500 MG/100 ML BAG IV SCH ×4 (06:00→22:05)
[2017-09-01] MEDS: 0.9 % SODIUM CHLORIDE 10 ML SYRINGE IV SCH ×5 (06:01→21:30)
--- NOTE | 2017-09-01 06:52 | XRay Report ---
CLINICAL INFORMATION: Follow up infiltrate COMPARISON: 08/02/2017 and 08/30/2017 FINDINGS: Sternotomy/CABG changes noted. The heart is moderately enlarged. Mediastinum and pulmonary vasculature is unremarkable. Bilateral alveolar infiltrates have worsened dramatically over the past day now with diffuse involvement and moderate consolidation in the right base. Bilateral pleural effusions noted. IMPRESSION: Diffuse bilateral alveolar infiltrate with consolidation in right base worsening considerably since yesterday's study. Primary diagnostic considerations include ARDS, hemorrhage, aspiration and infection. There is no pulmonary vascular distention to support CHF - but please correlate with BNP and other clinical evidence for congestive heart failure Interpreted and Authenticated by: Surendra Mcginnis 09/01/17
[2017-09-01] MEDS ORDERED: VANCOMYCIN PER PHARMACY IV SCH (07:00)
[2017-09-01] MEDS ORDERED: 0.9 % SODIUM CHLORIDE 1,000 ML BAG IV SCH (07:15)
[2017-09-01] MEDS: INSULIN LISPRO 1 UNIT/0.01 ML UNIT SQ SCH ×4 (07:17→21:24)
[2017-09-01] MEDS ORDERED: 0.9 % SODIUM CHLORIDE 10 ML SYRINGE IV PRN (08:23)
[2017-09-01] MEDS: HYDROmorphone 2 MG/ML VIAL IV PRN ×3 (09:25→22:51)
[2017-09-01] MEDS: HEPARIN 5,000 UNIT/ML VIAL SQ SCH ×2 (09:30→21:45)
[2017-09-01] MEDS: cefTRIAXone 1 GM VIAL IV SCH (09:53)
[2017-09-01] MEDS: 0.9 % SODIUM CHLORIDE 1,000 ML IV SCH ×3 (09:54→19:04)
[2017-09-01] MEDS: AMIODARONE HCL 200 MG TABLET PO SCH (12:52)
[2017-09-01] MEDS: CITALOPRAM 20 MG TABLET PO SCH (12:52)
[2017-09-01] MEDS: LORazepam 2 MG/ML VIAL IV PRN (14:58)
--- NOTE | 2017-09-01 17:24 | Internal Med Progress Note ---
Medical - PN: Subj Patient information: Note initiated : 09/01/17 at 5:21 pm Service Date, if different from initiated Date: [] Patient: Bill Snider 82 y/o M admitted on 08/30/17 for Decreased LOC/ Pneumonia. Interval history: 08/30: Admitted with large RLL pneumonia. DD aspiration, HCAP Was agitated throughout night. In mild respiratory distress with wheezing and rhonchi. Has been receiving Ativan and Morphine intermittently with slight improvement in agitation. 08/31: SBP 94 Requiring 4 L O2 via NC Continues to be delirious and agitated. WBC up to 15.9. MRSA: neg On: Ceftriaxone, Azithromycin, Levofloxacin, Metronidazole. Levofloxacin added Review of [place] medical information (h/P and D/c summary) 23:30 Patient is tachypneic and agitated. Unable to clear airways. Lungs: bilateral rhonchi CXR: extensive consolidation RLL and diffuse infiltrates makayla Called to update patient's condition: extensive pneumonia. Patient showing signs of fatigue, SOB and discomfort. Will provide more comfort with narcotics. Suction as needed. BiPap support if tolerated. Condition is serious, prognosis guarded. Left the decision to come in and call family up to . 09/01: Patient transferred to telemetry last night. After dilaudid and ativan, patient was suctioned for minimal amount of secretions. Breathing more comfortably. Was able to sleep for few hours. No fever, hemodynamics stable. Added Vancomycin to regimen. Will start feeding via PEG-tube. - Constitutional Vitals: Vital Signs Temp Pulse Resp BP Pulse Ox 98.6 F 98 H 20 146/68 95 09/01/17 16:00 09/01/17 16:00 09/01/17 16:00 09/01/17 16:00 09/01/17 16:00 Period Temp Pulse Resp BP Sys/Jane Pulse Ox Last 24 Hr 97.2 F-98.6 F 96-116 13-28 126-146/66-76 89-99 Intake and Output 09/01/17 09/01/17 09/01/17 05:59 13:59 21:59 Intake Total 100 / 100 350 / 350 Output Total 0 / 0 325 / 325 Balance 100 / 100 350 / 350 -325 / -325 Weight 187 lb 187 lb Patient Weight 09/02/17 05:59 Weight 187 lb Intake & Output: Intake & Output 09/01/17 09/01/17 09/01/17 05:59 13:59 21:59 Intake Total 100 / 100 350 / 350 Output Total 0 / 0 325 / 325 Balance 100 / 100 350 / 350 -325 / -325 Weight 187 lb 187 lb Intake: IV 100 / 100 350 / 350 Oral 0 / 0 Output: Urine Catheter Amount 325 / 325 Void Amount 0 / 0 General appearance: mild distress - Respiratory Respiratory exam: Present: rhonchi, wheezes - Cardiovascular Cardiovascular exam: Present: normal rate and rhythm - GI/Abdominal GI/Abdominal exam: Present: normal bowel sounds, soft Additional comments: PEG-tube in place Medical - PN: Obj Da - Labs CBC & Chem 7: 09/01/17 04:20 09/01/17 04:20 Labs: Abnormal Lab Results 09/01/17 09/01/17 08/31/17 04:20 04:20 04:17 WBC 17.0 H RBC 3.65 L Hgb 10.8 L Hct 33.6 L POC Hct RDW 17.1 H Plt Count Gran % 80.4 H Lymph % (Auto) 11.2 L Gran # 13.7 H Seg Neutrophils % Lymphocytes % Platelet Estimate RBC Morphology Polychromasia Anisocytosis POC Chloride Chloride 110 H Carbon Dioxide 19 L POC Total CO2 Anion Gap POC BUN BUN 69 H Creatinine 2.0 H POC Creatinine Hemoglobin A1c 6.9 H POC WB Ioniz Calcium Phosphorus 5.6 H ALT Alkaline Phosphatase Albumin 2.8 L Globulin Albumin/Globulin Ratio 08/31/17 08/31/17 08/30/17 04:17 04:17 17:05 WBC 15.9 H 12.2 H RBC 3.80 L 3.83 L Hgb 11.3 L 11.5 L Hct 34.9 L 34.4 L POC Hct RDW 16.6 H 16.5 H Plt Count 466 H 447 H Gran % 80.9 H Lymph % (Auto) 10.6 L Gran # 12.9 H Seg Neutrophils % 86 H Lymphocytes % 6 L Platelet Estimate Increased A RBC Morphology Abnorm A Polychromasia Few A Anisocytosis 1+ A POC Chloride Chloride 109 H Carbon Dioxide 17 L POC Total CO2 Anion Gap POC BUN BUN 62 H Creatinine 1.6 H POC Creatinine Hemoglobin A1c POC WB Ioniz Calcium Phosphorus ALT Alkaline Phosphatase Albumin Globulin Albumin/Globulin Ratio 08/30/17 17:05 WBC RBC Hgb Hct POC Hct 35.0 L RDW Plt Count Gran % Lymph % (Auto) Gran # Seg Neutrophils % Lymphocytes % Platelet Estimate RBC Morphology Polychromasia Anisocytosis POC Chloride 113 H Chloride Carbon Dioxide 18 L POC Total CO2 19 L Anion Gap 17.0 H POC BUN 55 H BUN 63 H Creatinine 1.7 H POC Creatinine 1.6 H Hemoglobin A1c POC WB Ioniz Calcium 1.33 H Phosphorus ALT 99 H Alkaline Phosphatase 176 H Albumin 3.1 L Globulin 4.1 H Albumin/Globulin Ratio 0.8 L Meds: Medications Acetaminophen (Tylenol) 650 mg PO Q6HP PRN PRN Reason: PAIN/FEVER > 101 Albuterol/Ipratropium (Duoneb) 3 ml NEB Q4HRT [facility] Last Admin: 09/01/17 15:10 Dose: 3 ml Amiodarone HCl (Cordarone) 200 mg PO QAMCC [facility] Last Admin: 09/01/17 12:52 Dose: 200 mg Bisacodyl (Dulcolax) 10 mg [place] DAILYP PRN PRN Reason: Constipation Ceftriaxone Sodium (Rocephin) 1 gm IV Q24H [facility] Last Admin: 09/01/17 09:53 Dose: 1 gm Chlorhexidine Gluconate (Peridex) 15 ml [place] BID [facility] Citalopram Hydrobromide (Celexa) 10 mg PO DAILY [facility] Last Admin: 09/01/17 12:52 Dose: 10 mg Dextrose (Dextrose 50%) 0 ml IV UD PRN PRN Reason: Hypoglycemia Diagnostic Test (Pha) (Accu-Chek) 1 each FS ACHS [facility] Last Admin: 09/01/17 12:52 Dose: 1 each Glucose (Insta-Glucose) 15 gm PO PRN PRN PRN Reason: Hypoglycemia Heparin Sodium (Porcine) (Heparin) 5,000 unit SQ Q12 [facility] Last Admin: 09/01/17 09:30 Dose: 5,000 unit Heparin Sodium (Porcine) (Heparin Flush) 2 ml IV Q12 [facility] Last Admin: 09/01/17 12:09 Dose: Not Given Hydromorphone HCl (Dilaudid) 0.5 - 1 mg IV Q2HP PRN PRN Reason: Dyspnea Last Admin: 09/01/17 09:25 Dose: 0.5 mg Metronidazole (Flagyl) 500 mg in 100 mls @ 100 mls/hr IV Q8H [facility] Last Admin: 09/01/17 13:04 Dose: 100 mls/hr Levofloxacin (Levaquin) 750 mg in 150 mls @ 100 mls/hr IV Q48H [facility] Sodium Chloride (Sodium Chloride 0.9%) 1,000 mls @ 125 mls/hr IV Q8H [facility] Last Admin: 09/01/17 09:54 Dose: 125 mls/hr Insulin Human Lispro (Humalog) 0 unit SQ ACHS [facility] PRN Reason: Protocol Last Admin: 09/01/17 13:04 Dose: 3 unit Lorazepam (Ativan) 0.5 mg IV Q4HP PRN PRN Reason: ANXIETY/SEDATION Last Admin: 09/01/17 14:58 Dose: 0.5 mg Sodium Chloride (Saline Flush) 10 ml IV Q8 [facility] Last Admin: 09/01/17 13:05 Dose: 10 ml Sodium Chloride (Saline Flush) 10 ml IV UD PRN PRN Reason: FLUSH Sodium Chloride (Saline Flush) 10 ml IV Q12 [facility] Last Admin: 09/01/17 09:55 Dose: 10 ml Vancomycin HCl (Vancomycin Per Pharmacy) 1 order IV UD [facility] Medical - PN: A/P - Time Spent With Patient Total time spent is greater than 50% in coordination of care (as documented) at patient's floor/unit and/or counseling patient: Greater than 35 minutes - Narrative A/P Narrative: 82-year-old male presented 08/30 with following problems: + AMS Underlying dementia Delirium own. Metabolic encephalopathy due to pneumonia, hypoglycemia Review of d/c summary [place] 06/19/17: was on Olanzaping 10 mg every 6 hours for agitation + Large R-sided pneumonia Aspiration vs HCAP Empirically started on Ceftriaxone and Metronidazole. Levofloxacin added. MRSA screen: negative.Blood cultures: NGTD CXR 08/31: worsening infiltrates. 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 Will monitor closely Insulin SS + CKD stage III Cr around 1.4 in June 2017 + Dementia + Urinary retention 09/01 re-insertion perez cath for 500 ml retention DVT prophylaxis: heparin Code status: DNR Medical - PN: Qual - VTE Deep Vein Thrombosis/Pulmonary Embolism Present on Admission: No
--- NOTE | 2017-09-01 19:10 | XRay Report ---
CLINICAL INFORMATION: PICC placement COMPARISON: 08/31/2017 2227 hours FINDINGS: Mild cardiomegaly is unchanged. Mediastinum is unremarkable. Diffuse infiltrates throughout both lungs show slight worsening since earlier film. Left PICC line tip is in the right atrium near the tricuspid valve plane. No definite effusion IMPRESSION: Worsening in diffuse bilateral infiltrates PICC line tip overlying tricuspid valve. Nurses instructed to withdraw tube 5 cm Interpreted and Authenticated by: Surendra Mcginnis 09/01/17
[2017-09-01 20:20] LABS: Albumin 2.8 gm/dL (3.2-5.2)
[2017-09-01] MEDS: CHLORHEXIDINE GLUCONATE 1 ML ORAL.SOL SWABMOUTH SCH (21:41)
[2017-09-01] MEDS: FAMOTIDINE 20 MG TABLET PO SCH (21:46)
[2017-09-02] MEDS ORDERED: VANCOMYCIN 1,000 MG in 0.9 % SODIUM CHLORIDE 250 ML IV SCH
[2017-09-02] MEDS: IPRATROPIUM/ALBUTEROL 3 ML AMPUL.NEB NEB SCH ×6 (03:15→23:15)
[2017-09-02 04:59] LABS: Basophils # (Auto) 0 K/mcL (0.0-0.3); Basophils % (Auto) 0 % (0.0-2.0); Eosinophils # (Auto) 0.3 K/mcL (0.0-0.7); Eosinophils % (Auto) 2.4 % (0.0-7.0); Granulocytes % (Auto) 86.1 % (38.0-78.0); Lymphocytes # (Auto) 0.9 K/mcL (1.5-4.8); Lymphocytes % (Auto) 6.4 % (15.5-49.0); Mean Cell Volume 91.8 fL (80.0-100.0); Mean Corpuscular HGB Conc 31.8 g/dL (31.0-36.0); Mean Corpuscular Hemoglobin 29.1 pg (26.0-34.0); Monocytes # (Auto) 0.7 K/mcL (0.1-0.9); Monocytes % (Auto) 5.1 % (1.0-12.0); Platelet Count 479 K/mcL (140-440); RBC 3.58 M/mcL (4.50-5.90)
[2017-09-02 05:12] LABS: Albumin 2.8 gm/dL (3.2-5.2); Vancomycin,Random 8.1 ug/mL
[2017-09-02] MEDS: metroNIDAZOLE 500 MG/100 ML BAG IV SCH ×3 (05:39→22:03)
[2017-09-02] MEDS: INSULIN LISPRO 1 UNIT/0.01 ML UNIT SQ SCH ×4 (07:03→21:56)
[2017-09-02] MEDS ORDERED: VANCOMYCIN 1,000 MG in 0.9 % SODIUM CHLORIDE 250 ML IV ONE (09:00)
--- NOTE | 2017-09-02 09:21 | XRay Report ---
CLINICAL INFORMATION: Follow-up bilateral infiltrates COMPARISON: 08/31/2017 and 09/01/2017 FINDINGS: Moderate cardiomegaly is unchanged. Mediastinum is unremarkable. The uterus left lung infiltrate has improved considerably with patchy residual seen in the left mid and lower lung field. Diffuse right lung also shows slight improvement in aeration. Small bilateral pleural effusions noted IMPRESSION: Moderate improvement in diffuse bilateral lung infiltrates since yesterday's chest x-ray. Interpreted and Authenticated by: Surendra Mcginnis 09/02/17
[2017-09-02] MEDS: cefTRIAXone 1 GM VIAL IV SCH (09:58)
[2017-09-02] MEDS: CITALOPRAM 20 MG TABLET PO SCH (09:58)
[2017-09-02] MEDS: HEPARIN 5,000 UNIT/ML VIAL SQ SCH ×2 (09:58→22:01)
[2017-09-02] MEDS: AMIODARONE HCL 200 MG TABLET PO SCH (09:58)
[2017-09-02] MEDS: 0.9 % SODIUM CHLORIDE 10 ML SYRINGE IV SCH ×2 (09:58→21:09)
[2017-09-02] MEDS: CHLORHEXIDINE GLUCONATE 1 ML ORAL.SOL SWABMOUTH SCH ×2 (09:59→21:09)
[2017-09-02] MEDS ORDERED: LEVOFLOXACIN 750 MG/150 ML BAG IV SCH (10:00)
[2017-09-02] MEDS: LORazepam 2 MG/ML VIAL IV PRN (12:04)
[2017-09-02] MEDS: HYDROmorphone 2 MG/ML VIAL IV PRN ×3 (12:44→22:14)
--- NOTE | 2017-09-02 14:46 | Internal Med Progress Note ---
Medical - PN: Subj Patient information: Note initiated : 09/02/17 at 2:40 pm Service Date, if different from initiated Date: [] Patient: Bill Snider 82 y/o M admitted on 08/30/17 for Decreased LOC/ Pneumonia. Interval history: 08/30: Admitted with large RLL pneumonia. DD aspiration, HCAP Was agitated throughout night. In mild respiratory distress with wheezing and rhonchi. Has been receiving Ativan and Morphine intermittently with slight improvement in agitation. 08/31: SBP 94 Requiring 4 L O2 via NC Continues to be delirious and agitated. WBC up to 15.9. MRSA: neg On: Ceftriaxone, Azithromycin, Levofloxacin, Metronidazole. Levofloxacin added Review of [place] medical information (h/P and D/c summary) 23:30 Patient is tachypneic and agitated. Unable to clear airways. Lungs: bilateral rhonchi CXR: extensive consolidation RLL and diffuse infiltrates makayla Called to update patient's condition: extensive pneumonia. Patient showing signs of fatigue, SOB and discomfort. Will provide more comfort with narcotics. Suction as needed. BiPap support if tolerated. Condition is serious, prognosis guarded. Left the decision to come in and call family up to . 09/01: Patient transferred to telemetry last night. After dilaudid and ativan, patient was suctioned for minimal amount of secretions. Breathing more comfortably. Was able to sleep for few hours. No fever, hemodynamics stable. Added Vancomycin to regimen. Will start feeding via PEG-tube. 3: Metabolic encephalopathy. Not interactive. Continues to require Dilaudid as needed for agitation. Afebrile. Hemodynamics stable. 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 - Constitutional Vitals: Vital Signs Temp Pulse Resp BP Pulse Ox 97.3 F 99 H 15 125/54 98 09/02/17 11:15 09/02/17 12:15 09/02/17 11:30 09/02/17 11:15 09/02/17 11:30 Period Temp Pulse Resp BP Sys/Jane Pulse Ox Last 24 Hr 97.2 F-98.6 F 91-99 14-32 125-146/54-81 94-99 Intake and Output 09/02/17 09/02/17 09/02/17 05:59 13:59 21:59 Intake Total 540 / 540 990 / 990 Output Total 250 / 250 Balance 290 / 290 990 / 990 Intake & Output: Intake & Output 09/02/17 09/02/17 09/02/17 05:59 13:59 21:59 Intake Total 540 / 540 990 / 990 Output Total 250 / 250 Balance 290 / 290 990 / 990 Intake: IV 100 / 100 350 / 350 Vancomycin 1,000 mg In Sodium 250 / 250 Chloride 0.9% 250 ml @ 250 mls/ hr IV ONCE ONE Rx#:[id number] Tube Feeding 240 / 240 240 / 240 GI Tube Flush 200 / 200 400 / 400 Output: Urine Catheter Amount 250 / 250 General appearance: no acute distress - Respiratory Respiratory exam: Present: rhonchi - Cardiovascular Cardiovascular exam: Present: normal rate and rhythm - GI/Abdominal GI/Abdominal exam: Present: normal bowel sounds, soft Medical - PN: Obj Da - Labs CBC & Chem 7: 09/02/17 03:30 09/02/17 03:30 Labs: Abnormal Lab Results 09/02/17 09/02/17 09/01/17 03:30 03:30 18:15 WBC 14.1 H RBC 3.58 L Hgb 10.4 L Hct 32.8 L POC Hct RDW 17.0 H Plt Count 479 H Gran % 86.1 H Lymph % (Auto) 6.4 L Gran # 12.2 H Lymph # (Auto) 0.9 L Seg Neutrophils % Lymphocytes % Platelet Estimate RBC Morphology Polychromasia Anisocytosis POC Chloride Chloride 110 H 112 H Carbon Dioxide 20 L 20 L POC Total CO2 Anion Gap POC BUN BUN 74 H 73 H Creatinine 2.0 H 1.9 H POC Creatinine Glucose 60 L 39 L* Hemoglobin A1c POC WB Ioniz Calcium Phosphorus 5.6 H 4.9 H Magnesium 2.6 H ALT Alkaline Phosphatase Albumin 2.8 L 2.8 L Globulin Albumin/Globulin Ratio 09/01/17 09/01/17 08/31/17 04:20 04:20 04:17 WBC 17.0 H RBC 3.65 L Hgb 10.8 L Hct 33.6 L POC Hct RDW 17.1 H Plt Count Gran % 80.4 H Lymph % (Auto) 11.2 L Gran # 13.7 H Lymph # (Auto) Seg Neutrophils % Lymphocytes % Platelet Estimate RBC Morphology Polychromasia Anisocytosis POC Chloride Chloride 110 H Carbon Dioxide 19 L POC Total CO2 Anion Gap POC BUN BUN 69 H Creatinine 2.0 H POC Creatinine Glucose Hemoglobin A1c 6.9 H POC WB Ioniz Calcium Phosphorus 5.6 H Magnesium ALT Alkaline Phosphatase Albumin 2.8 L Globulin Albumin/Globulin Ratio 08/31/17 08/31/17 08/30/17 04:17 04:17 17:05 WBC 15.9 H 12.2 H RBC 3.80 L 3.83 L Hgb 11.3 L 11.5 L Hct 34.9 L 34.4 L POC Hct RDW 16.6 H 16.5 H Plt Count 466 H 447 H Gran % 80.9 H Lymph % (Auto) 10.6 L Gran # 12.9 H Lymph # (Auto) Seg Neutrophils % 86 H Lymphocytes % 6 L Platelet Estimate Increased A RBC Morphology Abnorm A Polychromasia Few A Anisocytosis 1+ A POC Chloride Chloride 109 H Carbon Dioxide 17 L POC Total CO2 Anion Gap POC BUN BUN 62 H Creatinine 1.6 H POC Creatinine Glucose Hemoglobin A1c POC WB Ioniz Calcium Phosphorus Magnesium ALT Alkaline Phosphatase Albumin Globulin Albumin/Globulin Ratio 08/30/17 17:05 WBC RBC Hgb Hct POC Hct 35.0 L RDW Plt Count Gran % Lymph % (Auto) Gran # Lymph # (Auto) Seg Neutrophils % Lymphocytes % Platelet Estimate RBC Morphology Polychromasia Anisocytosis POC Chloride 113 H Chloride Carbon Dioxide 18 L POC Total CO2 19 L Anion Gap 17.0 H POC BUN 55 H BUN 63 H Creatinine 1.7 H POC Creatinine 1.6 H Glucose Hemoglobin A1c POC WB Ioniz Calcium 1.33 H Phosphorus Magnesium ALT 99 H Alkaline Phosphatase 176 H Albumin 3.1 L Globulin 4.1 H Albumin/Globulin Ratio 0.8 L Meds: Medications Acetaminophen (Tylenol) 650 mg PO Q6HP PRN PRN Reason: PAIN/FEVER > 101 Albuterol/Ipratropium (Duoneb) 3 ml NEB Q4HRT [facility] Last Admin: 09/02/17 14:35 Dose: 3 ml Amiodarone [facility] (Cordarone) [facility] Last Admin: 09/02/17 09:58 Dose: 200 mg Bisacodyl (Dulcolax) 10 mg [place] DAILYP PRN PRN Reason: Constipation Ceftriaxone Sodium (Rocephin) 1 gm IV Q24H [facility] Last Admin: 09/02/17 09:58 Dose: 1 gm Chlorhexidine Gluconate (Peridex) 15 ml SWABMOUTH BID [facility] Last Admin: 09/02/17 09:59 Dose: 15 ml Citalopram Hydrobromide (Celexa) 10 mg PO DAILY [facility] Last Admin: 09/02/17 09:58 Dose: 10 mg Dextrose (Dextrose 50%) 0 ml IV UD PRN PRN Reason: Hypoglycemia Last Admin: 09/01/17 18:18 Dose: 50 ml Diagnostic Test (Pha) (Accu-Chek) 1 each FS ACHS [facility] Last Admin: 09/02/17 11:21 Dose: 1 each Famotidine (Pepcid) 40 mg PO HS [facility] Last Admin: 09/01/17 21:46 Dose: 40 mg Glucose (Insta-Glucose) 15 gm PO PRN PRN PRN Reason: Hypoglycemia Heparin Sodium (Porcine) (Heparin) 5,000 unit SQ Q12 [facility] Last Admin: 09/02/17 09:58 Dose: 5,000 unit Heparin Sodium (Porcine) (Heparin Flush) 2 ml IV Q12 [facility] Last Admin: 09/02/17 09:57 Dose: 2 ml Hydromorphone HCl (Dilaudid) 0.5 - 1 mg IV Q2HP PRN PRN Reason: Dyspnea Last Admin: 09/02/17 12:44 Dose: 0.5 mg Metronidazole (Flagyl) 500 mg in 100 mls @ 100 mls/hr IV Q8H [facility] Last Admin: 09/02/17 14:08 Dose: 100 mls/hr Levofloxacin (Levaquin) 750 mg in 150 mls @ 100 mls/hr IV Q48H [facility] Last Admin: 09/02/17 11:18 Dose: 100 mls/hr Insulin Human Lispro (Humalog) 0 unit SQ ACHS [facility] PRN Reason: Protocol Last Admin: 09/02/17 11:22 Dose: Not Given Lactulose (Cephulac) 30 gm PT QID [facility] Lorazepam (Ativan) 0.5 mg IV Q4HP PRN PRN Reason: ANXIETY/SEDATION Last Admin: 09/02/17 12:04 Dose: 0.5 mg Sodium Chloride (Saline Flush) 10 ml IV PRN PRN Reason: FLUSH Sodium Chloride (Saline Flush) 10 ml IV Q12 [facility] Last Admin: 09/02/17 09:58 Dose: 10 ml Vancomycin HCl (Vancomycin Per Pharmacy) 1 order IV [facility] Medical - PN: A/P - Time Spent With Patient Total time spent is greater than 50% in coordination of care (as documented) at patient's floor/unit and/or counseling patient: 25 - 35 minutes - Narrative A/P Narrative: 82-year-old male presented 08/30 with following problems: + AMS Underlying dementia Delirium . Metabolic encephalopathy due to pneumonia, hypoglycemia Review of d/c summary [place] 06/19/17: was on Olanzaping 10 mg every 6 hours for agitation + Large R-sided pneumonia Aspiration vs HCAP Empirically started on Ceftriaxone and Metronidazole. Levofloxacin added. MRSA screen: negative.Blood cultures: NGTD CXR 08/31: worsening infiltrates. 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 Will monitor closely Insulin SS + CKD stage III Cr around 1.4 in June 2017 + Dementia + Urinary retention 09/01 re-insertion perez cath for 500 ml retention DVT prophylaxis: heparin Code status: DNR Medical - PN: Qual - VTE Deep Vein Thrombosis/Pulmonary Embolism Present on Admission: No
[2017-09-02] MEDS: LACTULOSE 20 GM/30 ML ORAL.SOL PT SCH ×2 (18:02→21:08)
[2017-09-02] MEDS: FAMOTIDINE 20 MG TABLET PO SCH (21:08)
[2017-09-03] MEDS ORDERED: FUROSEMIDE 40 MG/4 ML VIAL IV ONE ×2 (00:51→01:00)
[2017-09-03] MEDS: HYDROmorphone 2 MG/ML VIAL IV PRN ×2 (02:30→10:49)
[2017-09-03] MEDS: IPRATROPIUM/ALBUTEROL 3 ML AMPUL.NEB NEB SCH ×3 (03:16→11:39)
[2017-09-03 05:30] LABS: Basophils # (Auto) 0 K/mcL (0.0-0.3); Basophils % (Auto) 0.1 % (0.0-2.0); Eosinophils # (Auto) 0 K/mcL (0.0-0.7); Eosinophils % (Auto) 0.1 % (0.0-7.0); Granulocytes % (Auto) 93.8 % (38.0-78.0); Lymphocytes # (Auto) 0.5 K/mcL (1.5-4.8); Lymphocytes % (Auto) 3.1 % (15.5-49.0); Mean Cell Volume 92.4 fL (80.0-100.0); Mean Corpuscular HGB Conc 31.8 g/dL (31.0-36.0); Mean Corpuscular Hemoglobin 29.3 pg (26.0-34.0); Monocytes # (Auto) 0.4 K/mcL (0.1-0.9); Monocytes % (Auto) 2.9 % (1.0-12.0); Platelet Count 479 K/mcL (140-440); RBC 3.72 M/mcL (4.50-5.90); Red Cell Distribution Width 17.8 % (11.5-14.5)
[2017-09-03] MEDS: metroNIDAZOLE 500 MG/100 ML BAG IV SCH (05:38)
[2017-09-03 05:52] LABS: Albumin 2.8 gm/dL (3.2-5.2); Blood Urea Nitrogen 88 mg/dl (8-23)
[2017-09-03] MEDS ORDERED: 0.9 % SODIUM CHLORIDE 1,000 ML IV SCH (07:45)
[2017-09-03] MEDS: LORazepam 2 MG/ML VIAL IV PRN (08:57)
[2017-09-03] MEDS: INSULIN LISPRO 1 UNIT/0.01 ML UNIT SQ SCH (09:04)
--- NOTE | 2017-09-03 09:18 | XRay Report ---
CLINICAL INFORMATION: Follow infiltrates COMPARISON: 09/02/2017 FINDINGS: Diffuse right lung infiltrate with consolidation in the perihilar region has worsened. Small right pleural effusion noted. The left lung has almost cleared with minimal residual perihilar airspace disease. Moderate cardiomegaly stable. Mediastinum and pulmonary vessels are normal. PICC line in stable satisfactory position. IMPRESSION: Worsening diffuse right lung infiltrate now with dense consolidation in the perihilar region. Small right pleural effusion - stable. There complete resolution in left lung infiltrate with minimal perihilar residual Interpreted and Authenticated by: Surendra Mcginnis 09/03/17
[2017-09-03] MEDS ORDERED: VANCOMYCIN 1,000 MG in 0.9 % SODIUM CHLORIDE 250 ML IV ONE (10:00)
--- NOTE | 2017-09-03 10:16 | Internal Med Progress Note ---
Medical - PN: Subj Patient information: Note initiated : 09/03/17 at 10:08 am Service Date, if different from initiated Date: [] Patient: Bill Snider 82 y/o M admitted on 08/30/17 for Decreased LOC/ Pneumonia. S/P CABG x 4 vessels in May 2017, requiring prolonged hospitalization due to pneumonia, respiratory failure and CVA resulting in residual R hemiparesis. Interval history: 08/30: Admitted with large RLL pneumonia. DD aspiration, HCAP Was agitated throughout night. In mild respiratory distress with wheezing and rhonchi. Has been receiving Ativan and Morphine intermittently with slight improvement in agitation. 08/31: SBP 94 Requiring 4 L O2 via NC Continues to be delirious and agitated. WBC up to 15.9. MRSA: neg On: Ceftriaxone, Azithromycin, Levofloxacin, Metronidazole. Levofloxacin added Review of [place] medical information (h/P and D/c summary) 23:30 Patient is tachypneic and agitated. Unable to clear airways. Lungs: bilateral rhonchi CXR: extensive consolidation RLL and diffuse infiltrates makayla Called to update patient's condition: extensive pneumonia. Patient showing signs of fatigue, SOB and discomfort. Will provide more comfort with narcotics. Suction as needed. BiPap support if tolerated. Condition is serious, prognosis guarded. Left the decision to come in and call family up to . 09/01: Patient transferred to telemetry last night. After dilaudid and ativan, patient was suctioned for minimal amount of secretions. Breathing more comfortably. Was able to sleep for few hours. No fever, hemodynamics stable. Added Vancomycin to regimen. Will start feeding via PEG-tube. 09/02: Metabolic encephalopathy. Not interactive. Continues to require Dilaudid as needed for agitation. Afebrile. Hemodynamics stable. 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 09/03: TF via PEG-tube with increasing boluses was started on 09/02 at daytime. Last night TF was noted in secretions when suctioning upper airways. When PEGtube was connected to suction more than 750 ml TF-like gastric content was drained. Overnight more labored breathing and need for more supplemental oxygen. BiPAP support provided. decreased. Poor overall prognosis. This am , daughter and son requested patient be 'comfort measures only'. - Constitutional Vitals: Vital Signs Temp Pulse Resp BP Pulse Ox 98.0 F 105 H 20 125/51 100 09/03/17 07:13 09/03/17 08:17 09/03/17 08:17 09/03/17 07:13 09/03/17 07:13 Period Temp Pulse Resp BP Sys/Jane Pulse Ox Last 24 Hr 97.1 F-98.0 F 91-105 15-28 118-137/51-62 90-100 Intake and Output 09/02/17 09/03/17 09/03/17 21:59 05:59 13:59 Intake Total 637 / 637 100 / 100 Output Total 150 / 150 900 / 900 Balance 487 / 487 -800 / -800 Weight 192 lb 6.4 oz Intake & Output: Intake & Output 09/02/17 09/03/17 09/03/17 21:59 05:59 13:59 Intake Total 637 / 637 100 / 100 Output Total 150 / 150 900 / 900 Balance 487 / 487 -800 / -800 Weight 192 lb 6.4 oz Intake: IV 100 / 100 100 / 100 Tube Feeding 237 / 237 GI Tube Flush 300 / 300 Output: Gastric Drainage 650 / 650 PEG 650 / 650 Urine Catheter Amount 150 / 150 250 / 250 Other: Meal Breakfast Percent of Meal Consumed npo General appearance: mild distress - Respiratory Respiratory exam: Present: accessory muscle use, rales - Cardiovascular Cardiovascular exam: Present: tachycardia - GI/Abdominal GI/Abdominal exam: Present: diminished bowel sounds - Neurological Exam Neurological exam: Present: altered Medical - PN: Obj Da - Labs CBC & Chem 7: 09/03/17 03:50 09/03/17 03:50 Labs: Abnormal Lab Results 09/03/17 09/03/17 09/02/17 03:50 03:50 03:30 WBC 14.5 H RBC 3.72 L Hgb 10.9 L Hct 34.4 L RDW 17.8 H Plt Count 479 H Gran % 93.8 H Lymph % (Auto) 3.1 L Gran # 13.6 H Lymph # (Auto) 0.5 L Chloride 109 H 110 H Carbon Dioxide 20 L 20 L BUN 88 H 74 H Creatinine 2.5 H 2.0 H Glucose 109 H 60 L Phosphorus 6.3 H* 5.6 H Magnesium 2.6 H 2.6 H Albumin 2.8 L 2.8 L 09/02/17 09/01/17 09/01/17 03:30 18:15 04:20 WBC 14.1 H RBC 3.58 L Hgb 10.4 L Hct 32.8 L RDW 17.0 H Plt Count 479 H Gran % 86.1 H Lymph % (Auto) 6.4 L Gran # 12.2 H Lymph # (Auto) 0.9 L Chloride 112 H 110 H Carbon Dioxide 20 L 19 L BUN 73 H 69 H Creatinine 1.9 H 2.0 H Glucose 39 L* Phosphorus 4.9 H 5.6 H Magnesium Albumin 2.8 L 2.8 L 09/01/17 04:20 WBC 17.0 H RBC 3.65 L Hgb 10.8 L Hct 33.6 L RDW 17.1 H Plt Count Gran % 80.4 H Lymph % (Auto) 11.2 L Gran # 13.7 H Lymph # (Auto) Chloride Carbon Dioxide BUN Creatinine Glucose Phosphorus Magnesium Albumin Meds: Medications Acetaminophen (Tylenol) 650 mg PO Q6HP PRN PRN Reason: PAIN/FEVER > 101 Albuterol/Ipratropium (Duoneb) 3 ml NEB Q4HRT [facility] Last Admin: 09/03/17 07:53 Dose: 3 ml Amiodarone HCl (Cord[facility]one) [facility] Last Admin: 09/02/17 09:58 Dose: 200 mg Bisacodyl (Dulcolax) 10 mg [place] DAILYP PRN PRN Reason: Constipation Ceftriaxone Sodium (Rocephin) 1 gm IV Q24H [facility] Last Admin: 09/02/17 09:58 Dose: 1 gm Chlorhexidine Gluconate (Peridex) 15 ml SWABMOUTH BID [facility] Last Admin: 09/02/17 21:09 Dose: 15 ml Dextrose (Dextrose 50%) 0 ml IV UD PRN PRN Reason: Hypoglycemia Last Admin: 09/01/17 18:18 Dose: 50 ml Diagnostic Test (Pha) (Accu-Chek) 1 each FS ACHS [facility] Last Admin: 09/03/17 09:04 Dose: 1 each Famotidine (Pepcid) 40 mg PO [facility] Last Admin: 09/02/17 21:08 Dose: Not Given Glucose (Insta-Glucose) 15 gm PO PRN PRN PRN Reason: Hypoglycemia Heparin Sodium (Porcine) (Heparin) 5,000 unit SQ Q12 [facility] Last Admin: 09/02/17 22:01 Dose: 5,000 unit Heparin Sodium (Porcine) (Heparin Flush) 2 ml IV Q12 [facility] Last Admin: 09/02/17 22:01 Dose: 2 ml Hydromorphone HCl (Dilaudid) 0.5 - 1 mg IV Q2HP PRN PRN Reason: Dyspnea Last Admin: 09/03/17 02:30 Dose: 1 mg Metronidazole (Flagyl) 500 mg in 100 mls @ 100 mls/hr IV Q8H [facility] Last Admin: 09/03/17 05:38 Dose: 100 mls/hr Levofloxacin (Levaquin) 750 mg in 150 mls @ 100 mls/hr IV Q48H [facility] Last Admin: 09/02/17 11:18 Dose: 100 mls/hr Sodium Chloride (Sodium Chloride 0.9%) 1,000 mls @ 125 mls/hr IV .Q8H [facility] Vancomycin HCl 1,000 mg/ (Sodium Chloride) 250 mls @ 250 mls/hr IV ONCE ONE Stop: 09/03/17 10:59 Insulin Human Lispro (Humalog) 0 unit SQ ACHS [facility] PRN Reason: Protocol Last Admin: 09/03/17 09:04 Dose: Not Given Lactulose (Cephulac) 30 gm PT QID [facility] Last Admin: 09/02/17 21:08 Dose: Not Given Lorazepam (Ativan) 0.5 mg IV Q4HP PRN PRN Reason: ANXIETY/SEDATION Last Admin: 09/03/17 08:57 Dose: 0.5 mg Sodium Chloride (Saline Flush) 10 ml IV UD PRN PRN Reason: FLUSH Sodium Chloride (Saline Flush) 10 ml IV Q12 [facility] Last Admin: 09/02/17 21:09 Dose: 10 ml Vancomycin HCl (Vancomycin Per Pharmacy) 1 order IV UD [facility] Medical - PN: A/P - Time Spent With Patient Total time spent is greater than 50% in coordination of care (as documented) at patient's floor/unit and/or counseling patient: 15 - 24 minutes - Narrative A/P Narrative: 82-year-old male presented 08/30 with following problems: + AMS Underlying dementia Delirium Sundowning. Metabolic encephalopathy due to pneumonia, hypoglycemia Review of d/c summary [place] 06/19/17: was on Olanzaping 10 mg every 6 hours for agitation + Large R-sided pneumonia Aspiration vs HCAP Empirically started on Ceftriaxone and Metronidazole. Levofloxacin added. MRSA screen: negative.Blood cultures: NGTD CXR 08/31: worsening infiltrates. Antibiotics: Ceftriaxone, metronidazole, levofloxacin, Vancomycin. 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 Will monitor closely Insulin SS + CKD stage III Cr around 1.4 in June 2017 + Dementia + Urinary retention 09/01 re-insertion perez cath for 500 ml retention + Comfort Measures Only /3 Will discontinue antibiotics transfer to [facility] DVT prophylaxis: heparin Code status: Comfort care only Medical - PN: Qual - VTE Deep Vein Thrombosis/Pulmonary Embolism Present on Admission: No
[2017-09-03] MEDS: CHLORHEXIDINE GLUCONATE 1 ML ORAL.SOL SWABMOUTH SCH (10:40)
[2017-09-03] MEDS: 0.9 % SODIUM CHLORIDE 10 ML SYRINGE IV SCH (10:42)
[2017-09-03] MEDS: HEPARIN 5,000 UNIT/ML VIAL SQ SCH (10:43)
[2017-09-03] MEDS: cefTRIAXone 1 GM VIAL IV SCH (10:43)
[2017-09-03] MEDS: AMIODARONE HCL 200 MG TABLET PO SCH (10:43)
[2017-09-03] MEDS: LACTULOSE 20 GM/30 ML ORAL.SOL PT SCH (10:43)
[2017-09-03] MEDS ORDERED: 0.9 % SODIUM CHLORIDE 10 ML SYRINGE IV PRN (12:32)
[2017-09-03] MEDS ORDERED: LORazepam 2 MG/ML VIAL IV PRN (12:32)
[2017-09-03] MEDS ORDERED: HYDROmorphone 2 MG/ML VIAL IV PRN (12:32)
[2017-09-03] MEDS ORDERED: HYDROmorphone 2 MG/ML VIAL ONE (12:35)
--- NOTE | 2017-09-03 20:09 | Death Note ---
Discharge Sum: Prov - Provider Patient information: Note initiated : 09/03/17 at 8:07 pm Service Date, if different from initiated Date: [] Patient: Bill Snider 82 y/o M admitted on 08/30/17 for Decreased LOC/ Pneumonia. Primary care physician: John Ross Consults: 08/30/17 19:37 Consult to Physician [CONS] Stat Comment: Consulting Provider: Jose Enrique Negron Reason For Exam: Physician to Consult Discharge Sum: Diag - PCOD Cause of : Aspiration pneumonia Discharge Sum: Summary - Date and Time Date of admission: 08/30/17 20:46 Date of : 09/03/17 Time of : 16:05 - Summary Details: 08/30: 82-year-old male presented 08/30 with following problems: + AMS Underlying dementia Delirium own. Metabolic encephalopathy due to pneumonia, hypoglycemia Review of d/c summary [place] 06/19/17: was on Olanzaping 10 mg every 6 hours for agitation + Large R-sided pneumonia Aspiration vs HCAP Empirically started on Ceftriaxone and Metronidazole. Levofloxacin added. MRSA screen: negative.Blood cultures: NGTD CXR 08/31: worsening infiltrates. Antibiotics: Ceftriaxone, metronidazole, levofloxacin, Vancomycin. 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 Will monitor closely Insulin SS + CKD stage III Cr around 1.4 in June 2017 + Dementia + Urinary retention 09/01 re-insertion perez cath for 500 ml retention 08/31: SBP 94 Requiring 4 L O2 via NC Continues to be delirious and agitated. WBC up to 15.9. MRSA: neg On: Ceftriaxone, Azithromycin, Levofloxacin, Metronidazole. Levofloxacin added Review of [place] medical information (h/P and D/c summary) 23:30 Patient is tachypneic and agitated. Unable to clear airways. Lungs: bilateral rhonchi CXR: extensive consolidation RLL and diffuse infiltrates makayla Called to update patient's condition: extensive pneumonia. Patient showing signs of fatigue, SOB and discomfort. Will provide more comfort with narcotics. Suction as needed. BiPap support if tolerated. Condition is serious, prognosis guarded. Left the decision to come in and call family up to . 09/01: Patient transferred to telemetry last night. After dilaudid and ativan, patient was suctioned for minimal amount of secretions. Breathing more comfortably. Was able to sleep for few hours. No fever, hemodynamics stable. Added Vancomycin to regimen. Will start feeding via PEG-tube. 09/02: Metabolic encephalopathy. Not interactive. Continues to require Dilaudid as needed for agitation. Afebrile. Hemodynamics stable. 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 09/03: TF via PEG-tube with increasing boluses was started on 09/02 at daytime. Last night TF was noted in secretions when suctioning upper airways. When PEGtube was connected to suction more than 750 ml TF-like gastric content was drained. Overnight more labored breathing and need for more supplemental oxygen. BiPAP support provided. MS decreased. Poor overall prognosis. This am , daughter and son requested patient be 'comfort measures only'. Patient at 1605 with family at bedside. - Additional Data Confirmation of as documented by pronouncing clinician: no pulse, no respirations, no heart sounds, pupils fixed and dilated Family: at bedside Attending physician: Jose Enrique Negron MD
[2017-09-03] MEDS ORDERED: 0.9 % SODIUM CHLORIDE 10 ML SYRINGE IV SCH (21:00)
[2017-09-03] MEDS ORDERED: CHLORHEXIDINE GLUCONATE 1 ML ORAL.SOL SWABMOUTH SCH (21:00)
== END 2017-09-03 19:26 | disposition expired | DRG 177 ==
LOC: ED 16:36 → ICU 20:46 → MEDSUR 08-31 16:51 → ICU 09-01 00:26 → MEDSUR 09-03 12:29
PROVIDERS: ADMIT Specialist; ATTEND Specialist